=== PATIENT | male | born 1945 | race Caucasian/White ===

== ENCOUNTER 2018-01-10 00:13 | Outpatient (CLI) | payer MEDICARE, OTHER, SELFPAY ==
[2018-01-10 11:33] LABS: ALT 24 U/L (12-78); AST 27 U/L (15-37); Albumin 3.7 g/dL (3.4-5.0); Alkaline Phosphatase 55 U/L (46-116); BUN 23 mg/dL (7-18); Bilirubin, Total 0.5 mg/dL (0.2-1.0); Calcium 9.2 mg/dL (8.5-10.1); Chloride 105 mmol/L (98-107); Cholesterol 170 mg/dL (50-200); Estimated GFR 59.68 (mL/min/1.73m2); Glucose 90 mg/dL (70-100); HDL Cholesterol 41 mg/dL (40-60); LDL CHOLESTEROL 108 mg/dL (<100); Potassium 4.8 mmol/L (3.5-5.1); Sodium 142 mmol/L (136-145); Total Protein 6.9 g/dL (6.4-8.2); Triglyceride 104 mg/dL (30-150)
== END 2018-01-10 00:33 ==
PROVIDERS: PCP Nurse Practitioner Family; Visit Provider Physician Assistant Medical
DX: E78.5 Hyperlipidemia, unspecified (principal)
CPT/HCPCS: 36415; 80053; 80061; 83721

== ENCOUNTER 2019-02-17 18:59 | Outpatient (REF) | payer MEDICARE, OTHER, SELFPAY ==
[2019-02-17 20:25] LABS: Hemoglobin A1C 5.7 % (4.5-6.2)
[2019-02-17 20:31] LABS: ALT 33 U/L (16-63); AST 24 U/L (15-37); Albumin 4.1 g/dL (3.4-5.0); Alkaline Phosphatase 59 U/L (46-116); Anion Gap 9.6 mmol/L (3-11); BUN 24 mg/dL (7-18); Bilirubin, Total 0.4 mg/dL (0.2-1.0); CO2 26.4 mmol/L (21.0-32.0); CREATININE 1.13 mg/dL (0.70-1.30); Calcium 9.8 mg/dL (8.5-10.1); Calculated LDL 131 mg/dL; Chloride 106 mmol/L (98-107); Cholesterol 206 mg/dL (<200); Glucose 82 mg/dL (74-106); HDL Cholesterol 41 mg/dL (40-60); Potassium 4.8 mmol/L (3.5-5.1); Sodium 142 mmol/L (136-145); Total Protein 7.4 g/dL (6.4-8.2); Triglyceride 171 mg/dL (<150)
== END 2019-02-17 19:19 ==
LOC: NCHCN 18:59
PROVIDERS: PCP Nurse Practitioner Family; Visit Provider Physician Assistant Medical
DX: E78.5 Hyperlipidemia, unspecified (principal); I10 Essential (primary) hypertension
CPT/HCPCS: 80053; 80061; 83036

== ENCOUNTER 2019-07-21 14:12 | Outpatient (CLI) | payer MEDICARE, OTHER, SELFPAY ==
--- NOTE | 2019-07-21 09:15 | DI.RAD_ITS ---
EXAM: XR SHOULDER RT COMPLETE 2+V CLINICAL HISTORY: pain in right shoulder. TECHNIQUE: 2D digital imaging was performed. COMPARISON: No previous for comparison. FINDINGS: BONES: No acute fracture is present. No bony destructive lesion is seen. Mild hypertrophic changes ar e seen at the acromioclavicular joint. Periarticular spurring is seen at the glenoid. JOINTS: No dislocation present. SOFT TISSUE: Calcifications are seen in the soft tissues adjacent to the greater tuberosity suggestiv e of calcific tendinitis. IMPRESSION: Degenerative changes of the right shoulder. DATA REPOSITORY: RADIATION DOSE DELIVERED:
== END 2019-07-21 14:32 ==
PROVIDERS: PCP Physician Assistant Medical; Referring Provider Physician Assistant Medical; Visit Provider Physician Assistant
DX: M25.511 Pain in right shoulder (principal); M75.31 Calcific tendinitis of right shoulder; M19.011 Primary osteoarthritis, right shoulder; M75.101 Unspecified rotator cuff tear or rupture of right shoulder, not specified as traumatic; M75.51 Bursitis of right shoulder; M75.21 Bicipital tendinitis, right shoulder
CPT/HCPCS: 99204; 73030

== ENCOUNTER 2019-07-29 07:24 | Outpatient (CLI) | payer MEDICARE, SELFPAY ==
--- NOTE | 2019-07-29 07:45 | DI.MRI_ITS ---
EXAM: MR UPPER JOINT RT WO CLINICAL HISTORY: Rotator cuff tear, subacute,TENDONITIS,BURSITIS,M75.21,M75.51,M75.101. TECHNIQUE: Multiplanar multisequence MRI was performed. COMPARISON: CR XR SHOULDER RT COMPLETE 2+V from 07/21/2019 FINDINGS: There is mild spurring at the AC joint which may mildly impinge on the distal supraspinatus muscle. There is mild thickening of the distal supraspinatus tendon. The there is a focal area of high sig nal, consistent with a partial tear. There is no muscle atrophy. The infraspinatus, subscapularis a nd biceps tendons appear intact. There is a minimal of fluid in the subacromial subdeltoid bursa. N o glenohumeral joint effusion is seen. The labrum is grossly intact. The marrow signal is normal. IMPRESSION: Partial tear of the distal supraspinatus tendon. AC joint degenerative changes. DATA REPOSITORY:
== END 2019-07-29 07:44 ==
PROVIDERS: PCP Physician Assistant Medical; Visit Provider Student in an Organized Health Care Education/Training Program
DX: M25.511 Pain in right shoulder (principal); M75.101 Unspecified rotator cuff tear or rupture of right shoulder, not specified as traumatic; M19.011 Primary osteoarthritis, right shoulder
CPT/HCPCS: 73221

== ENCOUNTER → 2019-08-03 11:15 | Outpatient (BNVA) | payer MEDICARE, SELFPAY | PROVIDERS: PCP Physician Assistant Medical; Referring Provider Physician Assistant Medical; Visit Provider Student in an Organized Health Care Education/Training Program | DX: M75.21 Bicipital tendinitis, right shoulder (principal); M75.51 Bursitis of right shoulder; M75.101 Unspecified rotator cuff tear or rupture of right shoulder, not specified as traumatic | CPT/HCPCS: 99213 ==

== ENCOUNTER → 2019-10-08 08:03 | Outpatient (BNVA) | payer MEDICARE, SELFPAY | PROVIDERS: PCP Physician Assistant Medical; Referring Provider Physician Assistant Medical; Visit Provider Physical Therapy Assistant | DX: Z12.11 Encounter for screening for malignant neoplasm of colon (principal); I10 Essential (primary) hypertension ==

== ENCOUNTER 2019-10-25 07:15 | Day surgery (SDC) | payer MEDICARE, SELFPAY ==
--- NOTE | 2019-10-25 06:34 | W.COLOREPORT ---
Date of service: 10/25/19 Time of Service: : Colonoscopy Report Date of procedure: 10/25/19 Pre-op diagnosis general: Colon Cancer Screening Post-op diagnosis procedure note: other (polyps, diverticulosis) Procedure: Colonoscopy with polypectomy and biopsies Surgeon: Adrianna Huerta Anesthesia proc note operative: other (General/ASA 2/Herman Spaulding, HESHAM) Estimated blood loss (mL): 3 Pathology: other (ascending polyp, bx of ascending lipoma (?), sigmoid polyps x2, rectal polyp) Complications: None Disposition: same day Indications: The patient is here for Colonoscopy pre-op. His last screening was in 2008 and was unremarkable. He has no family history of colon cancer. He has not had any bowel habit changes. -Discussed colonoscopy bowel prep as well as the procedure. Discussed possible complications of the procedure to include bleeding, pain, perforation, missed small lesion/polyp, sore throat, aspiration and adverse reaction to the medications. Questions were answered to patient?s satisfaction. No guarantees were implied or given. Prep: Miralax/Dulcolax Procedure Start Time: : Procedure End Time: :58 Retraction Time: 24 minutes Findings: One sessile polyp in the proximal ascending colon. Soft mass in the proximal ascending colon with normal appearing mucosa. Biopsies done. 3 small polyps in the sigmoid and rectum Procedure Description: After informed consent was obtained the patient was taken to the procedure room and placed in a left decubitous position. Monitors were applied and a time out was done. The patients name, date of , procedure, allergies to medications and metal in their body was reviewed. The patient was then sedated. Once sedated and comfortable a rectal exam was done. External exam was normal. Internal exam revealed a normal sphincter tone and no palpable masses. The prostate felt smooth. The scope was then introduced and retro-flexed. No internal hemorrhoids, masses or polyps were identified on retro-flexion. The scope was then advanced to the cecum without difficulty. The ileocecal valve and appendiceal orifice were identified. The prep was good. The scope was then slowly retracted over 24 minutes back into the rectum. Polyps were removed with cold forceps in the ascending colon, sigmoid colon and rectum. Biopsies were done of a mass that grossly looked like a lipoma. There was moderate diverticulosis noted in the descending and sigmoid colon.The scope was removed and the patient was woken up and taken back to Same day surgery in stable condition. The patient tolerated the procedure well and there were no immediate complications. Follow up: The patient should follow up in 5 years unless they develop changes in bowel habits or other new gastrointestinal complaints.
--- NOTE | 2019-10-25 06:35 | W.PM.DSUDISC ---
Discharge Plan Disposition Patient Disposition: HOME Condition: Good Discharge Details Reason For Visit: Colonoscopy Attending Provider: Adrianna Huerta Primary Care Provider: Braden Mcdermott Home Meds and New Rx's Prescriptions: Continued lisinopril 40 mg tablet 40 mg PO DAILY RF: 0 simvastatin 10 mg tablet 10 mg PO DAILY RF: 0 amlodipine 5 mg tablet 5 mg PO DAILY RF: 0 latanoprost 0.005 % drops 1 drp OP DAILY RF: 0 aspirin [Adult Low Dose Aspirin] 81 mg tablet,delayed release (DR/EC) 81 mg PO DAILY RF: 0 Discontinued polyethylene glycol 3350 17 gram/dose powder 238 g PO ONCE Qty: 238 RF: 0 bisacodyl [Dulcolax (bisacodyl)] 5 mg tablet,delayed release (DR/EC) 5 mg PO ONCE Qty: 4 RF: 0 Discharge Instructions Instructions: Diverticulosis (DC), Colorectal Polyps (DC) Additional Instructions: Findings: 4 polyps Diverticulosis Follow up: 5 years Please call if you develop: fevers >101.5 Nausea or Vomiting Abdominal pain that is not transient DAY SURGERY UNIT POST ENDOSCOPY INSTRUCTIONS 1. Because there will be medication in your system for the next 24 hours, you may feel a little sleepy. Your coordination will be affected. Therefore: a. Do not drive or operate dangerous equipment for 24 hours. b. Do not drink alcohol beverages for 24 hours (not even beer). c. Plan to go home and rest for the day. 2. Generally there are no restrictions on your activity after a day or so has gone by, but you may feel a bit fatigued for a few days. 3 After you arrive home you may have a light meal and return to a normal diet as you can tolerate it without feeling sick to your stomach. 4. After surgery, you may feel pain or discomfort. This should be only transient, but if it persists please contact your doctor. 5. If there are any questions regarding the findings of your procedure, please feel free to contact your doctor. 6. If you are unable to contact your doctor with a problem, contact the hospital at [phone]. 7. Continue all your regular medications unless directed otherwise. I understand the above instructions and have no questions. Signature of Patient or Responsible Adult Escort Date/Time Name of Responsible Adult Escort Signature of Nurse Date/Time Activity:: Activity as Tolerated Diet:: High Fiber Discharge Orders Discharge Orders: Discharge Order (Routine); Ordered 10/25/19 Ordered By: Adrianna Huerta
[2019-10-25 07:29] VITALS: BP 143/87; PULSE 79; RESP 16; TEMP 36.2; O2SAT 98
[2019-10-25] MEDS: Lactated Ringers 1,000 ML 80 ML IV (07:46)
--- NOTE | 2019-10-25 08:36 | BOWEL_PTH ---
PATIENT: Yeison Gutierrez LOC: [facility] U#:[id number] AGE/SX: 74/M ROOM: RE10/25/[address]: Adrianna Huerta MD : [id number] BED: DIS: 10/25/2019 SPEC #: [id number] RECD: 10/25/19 12:38 STATUS: SHARI REQ #: [id number] GHASSAN: 10/25/19 08:[address]: Adrianna Huerta DEPT: Surgical Specimen RECD BY: Cookie Garber ENTERED: 10/25/19 12:41 SP TYPE: Bowel OTHR DR: Braden Mcdermott Tissues: 1 - BIOPSY BOWEL 2 - BIOPSY BOWEL 3 - BIOPSY BOWEL 4 - BIOPSY BOWEL Procedures: GROSS AND MICRO LEVEL 4 Comments: [id number]
[2019-10-25 09:35] VITALS: BP 148/84; PULSE 63; RESP 18; TEMP 36.2; O2SAT 100
== END 2019-10-25 10:10 | disposition home or self-care (01) ==
PROVIDERS: PCP Physician Assistant Medical; Visit Provider Surgery
PROC: 0DJD8ZZ Inspection of Lower Intestinal Tract, Via Natural or Artificial Opening Endoscopic (ICD-10-PCS; CPT 45378; principal; 2019-10-25 08:30)
DX: Z12.11 Encounter for screening for malignant neoplasm of colon (principal); D12.2 Benign neoplasm of ascending colon; K63.5 Polyp of colon; K62.1 Rectal polyp; D17.5 Benign lipomatous neoplasm of intra-abdominal organs; K57.30 Diverticulosis of large intestine without perforation or abscess without bleeding
CPT/HCPCS: 45380; 88305; J2001

== ENCOUNTER → 2019-12-01 10:58 | Outpatient (BNVA) | payer MEDICARE, SELFPAY | PROVIDERS: PCP Physician Assistant Medical; Referring Provider Physician Assistant Medical; Visit Provider Student in an Organized Health Care Education/Training Program | DX: M75.111 Incomplete rotator cuff tear or rupture of right shoulder, not specified as traumatic (principal); M75.21 Bicipital tendinitis, right shoulder; M75.51 Bursitis of right shoulder; I10 Essential (primary) hypertension | CPT/HCPCS: 99213 ==

== ENCOUNTER 2020-02-07 12:23 | Outpatient (REF) | payer MEDICARE, SELFPAY ==
[2020-02-07 20:11] LABS: ALT 23 U/L (16-63); AST 17 U/L (15-37); Alkaline Phosphatase 63 U/L (46-116); BUN 26 mg/dL (7-18); Bilirubin, Total 0.5 mg/dL (0.2-1.0); Calcium 9.4 mg/dL (8.5-10.1); Calculated LDL 111 mg/dL (<100); Chloride 104 mmol/L (98-107); Cholesterol 182 mg/dL (<200); Estimated GFR 54.11 (mL/min/1.73m2); Glucose 94 mg/dL (74-106); HDL Cholesterol 38 mg/dL (40-60); Potassium 4.7 mmol/L (3.5-5.1); Sodium 139 mmol/L (136-145); Total Protein 7.3 g/dL (6.4-8.2); Triglyceride 167 mg/dL (<150)
[2020-02-07 20:53] LABS: Hemoglobin A1C 5.6 % (<5.7)
[2020-02-08 18:00] LABS: PSA, Diagnostic 2.1 ng/mL (0.0-6.5)
== END 2020-02-07 12:43 ==
LOC: NCHCN 12:23
PROVIDERS: PCP Physician Assistant Medical; Visit Provider Physician Assistant Medical
DX: I10 Essential (primary) hypertension (principal); R73.03 Prediabetes; E78.5 Hyperlipidemia, unspecified; R32 Unspecified urinary incontinence
CPT/HCPCS: 80053; 80061; 83036; 84153

== ENCOUNTER 2020-09-08 13:27 | Outpatient (REF) | payer MEDICARE, SELFPAY ==
[2020-09-08 19:19] LABS: Anion Gap 11.6 mmol/L (3-11); BUN 28 mg/dL (7-18); CO2 23.4 mmol/L (21.0-32.0); CREATININE 1.2 mg/dL (0.70-1.30); Chloride 105 mmol/L (98-107); Estimated GFR 59.18 (mL/min/1.73m2); Glucose 112 mg/dL (74-106); Potassium 4.4 mmol/L (3.5-5.1); Sodium 140 mmol/L (136-145)
== END 2020-09-08 13:28 | disposition home or self-care (01) ==
LOC: NCHCN 13:27
PROVIDERS: PCP Physician Assistant Medical; Visit Provider Physician Assistant Medical
DX: I10 Essential (primary) hypertension (principal)
CPT/HCPCS: 80048

== ENCOUNTER 2021-03-07 10:51 | Outpatient (REF) | payer MEDICARE, SELFPAY ==
[2021-03-07 12:51] LABS: ALT 29 U/L (16-63); AST 18 U/L (15-37); Albumin 3.8 g/dL (3.4-5.0); Alkaline Phosphatase 75 U/L (46-116); Anion Gap 7.9 mmol/L (3-11); BUN 31 mg/dL (7-18); Bilirubin, Total 0.2 mg/dL (0.2-1.0); CO2 28.1 mmol/L (21.0-32.0); CREATININE 1.3 mg/dL (0.70-1.30); Calcium 9.2 mg/dL (8.5-10.1); Calculated LDL 132 mg/dL (<100); Chloride 106 mmol/L (98-107); Cholesterol 196 mg/dL (<200); Estimated GFR 53.96 (mL/min/1.73m2); Glucose 100 mg/dL (74-106); HDL Cholesterol 44 mg/dL (40-60); Potassium 4.8 mmol/L (3.5-5.1); Sodium 142 mmol/L (136-145); Total Protein 7.1 g/dL (6.4-8.2); Triglyceride 104 mg/dL (<150)
== END 2021-03-07 10:52 | disposition home or self-care (01) ==
LOC: NCHCN 10:51
PROVIDERS: PCP Physician Assistant Medical; Visit Provider Physician Assistant Medical
DX: E78.5 Hyperlipidemia, unspecified (principal)
CPT/HCPCS: 80053; 80061

== ENCOUNTER 2021-06-22 13:45 | Outpatient (REF) | payer MEDICARE, SELFPAY ==
[2021-06-22 19:30] LABS: ALT 23 U/L (16-63); AST 15 U/L (15-37); Alkaline Phosphatase 69 U/L (46-116); Anion Gap 7.6 mmol/L (3-11); BUN 32 mg/dL (7-18); Bilirubin, Total 0.4 mg/dL (0.2-1.0); CO2 25.4 mmol/L (21.0-32.0); CREATININE 1.2 mg/dL (0.70-1.30); Calcium 9.1 mg/dL (8.5-10.1); Calculated LDL 91 mg/dL (<100); Chloride 105 mmol/L (98-107); Cholesterol 159 mg/dL (<200); Estimated GFR 59.02 (mL/min/1.73m2); Glucose 90 mg/dL (74-106); HDL Cholesterol 35 mg/dL (40-60); Sodium 138 mmol/L (136-145); Total Protein 7.3 g/dL (6.4-8.2); Triglyceride 166 mg/dL (<150)
== END 2021-06-22 13:46 | disposition home or self-care (01) ==
LOC: NCHCN 13:45
PROVIDERS: PCP Physician Assistant Medical; Visit Provider Physician Assistant Medical
DX: E78.5 Hyperlipidemia, unspecified (principal); R73.03 Prediabetes
CPT/HCPCS: 80053; 80061; 83036

== ENCOUNTER 2021-08-10 09:41 | Day surgery (SDC) | payer MEDICARE, SELFPAY ==
[2021-08-10 10:27] VITALS: BP 132/70; PULSE 55; RESP 16; TEMP 36.6; O2SAT 100
[2021-08-10] MEDS: Tropicam./Phenyleph. (1/2.5%) 5 ML BTL OS ×3 (10:34→10:44)
--- NOTE | 2021-08-10 11:14 | ANES.PREOP_ITS ---
General Info Date of Service Date Performed: 08/10/21 Height: 5 ft 11 in Weight: 74.6 kg Body Mass Index (BMI): 22.9 Surgical Procedure: Operation Date: 08/10/21 12:40 Proposed Procedure Side Surgeon p Cataract Extraction with IOL Implant w/Glaucoma Stent Left Steve Gilmore MD Meds Allergies and Home Medications Allergies Allergy/AdvReac Type Severity Reaction Status Date / Time bee venom protein (honey bee) Allergy Severe Verified 08/08/21 13:06 Sulfa (Sulfonamide AdvReac Mild VOMIT/DIARR Verified 08/08/21 13:06 Antibiotics) HEA Home Medication Medication Instructions Recorded amlodipine 5 mg tablet 5 mg PO DAILY 07/21/19 lisinopril 40 mg tablet 40 mg PO DAILY 07/21/19 simvastatin 10 mg tablet 10 mg PO DAILY 07/21/19 aspirin 81 mg tablet,delayed 81 mg PO DAILY 10/05/19 release (Adult Low Dose Aspirin) latanoprost 0.005 % eye drops 1 drp ophthalmic (eye) HS 10/05/19 Current Visit Medications: Current Medications Generic Name Dose Route Start Last Admin Trade Name Freq PRN Reason Stop Dose Admin Acetaminophen 1,000 mg 08/10/21 06:00 Acetaminophen 500 Mg Tab PO Q4H PRN PRN Miscellaneous Medication 0 ml 08/10/21 06:00 Prednisolone 1%, Moxifloxacin 0.5%, Nepafenac 0.1% 5ml Btl OS DIRECTED [facility] Miscellaneous Medication 0 ml 08/10/21 06:00 08/10/21 10:44 Tropicam./Phenyleph. (1/2.5%) 5 Ml Btl OS 1 drp DIRECTED V[facility]ESA Administration Tetracaine HCl 0 ml 08/10/21 06:00 Tetracaine 0.5% 4 Ml Btl OS DIRECTED VANESA PFSH Active Problems Active Problems: Problem Status Onset Code Rotator cuff tear, right M75.101 Bursitis of right shoulder M75.51 Tendonitis of long head of biceps brachii of right shoulder M75.21 Tubular adenoma of colon D12.6 Hyperplastic colon polyp K63.5 Medical History Medical History Glaucoma HTN (hypertension) Hyperlipidemia Prediabetes Surgical History Surgical History (Updated 08/10/21 @ 10:25 by Dipesh Harrison) Colonoscopy planned History of back surgery lumbar spine region Hx of Achilles tendon repair Hx of tonsillectomy Tobacco Smoking/Tobacco Use Status: Current-Occasional Tobacco Type: cigars Alcohol Alcohol Intake: current Alcohol intake frequency: holidays/special occasions only Alcohol type: beer Substance Use Substance use: Never Substance use type: does not use Vital Signs and Lab Results Vital Signs Most Recent Vital Signs in EMR: Most Recent Vital Signs Temp Pulse Resp BP Pulse Ox 36.6 C 55 L 16 132/70 100 08/10/21 10:27 08/10/21 10:27 08/10/21 10:27 08/10/21 10:27 08/10/21 10:27 Lab Results Blood Type / Crossmatch: No Data to Display Complete Blood Count: No Data to Display Complete Metabolic Panel: No Data to Display Liver Function Panel: 2 No Data to Display Coagulation Panel: No Data to Display Cardiac Panel: No Data to Display Arterial Blood Gas: No Data to Display Venous Blood Gas: No Data to Display Pancreas Panel: No Data to Display Thyroid Panel: No Data to Display Infectious Disease: No Data to Display Blood Cultures: No Data to Display Toxicology Panel: No Data to Display Anesthesia Assessment and Plan Anesthesia History Personal History: No History of Anesthesia Complications Family History: No Family History of Anesthesia Complications Exercise Tolerance Exercise Tolerance: Metabolic Equivalents>4 Pertinent Negatives Pertinent Negatives: No Symptoms of GERD, No Major Cardiovascular Symptoms or Complaints and No Major Pulmonary Symptoms or Complaints Cardiac & Pulmonary Exam Cardiac Exam: Normal S1/S2 Heart Sounds Pulmonary Exam: Clear Bilateral Breath Sounds Implantable Cardiac Device Does patient have a Pacemaker or an ICD?: No Airway Exam Known Difficult Airway: No Mallampati Class: 1 Mouth Opening: Normal (> 3cm) Thyromental Distance: Greater than 3 cm Neck Range of Motion: Full ROM Neck Circumference: Normal Teeth Condition: Normal Dentition ASA Classification ASA Score: ASA 2 Emergency Case?: No NPO Status NPO Status: NPO Clears >2 hours, Solids >8 hours Anesthesia Plan Resuscitation Status: Full Code Anesthesia Technique: MAC Anesthesia Airway Planned: Natural Airway Monitors Used: Standard Monitors
[2021-08-10 12:03] VITALS: BMI 22.9
[2021-08-10] MEDS: Tetracaine 0.5% 4 ML BTL OS (12:33)
[2021-08-10] MEDS: Balanced Salt Soln.-PLUS 500 ML BAG (12:35)
[2021-08-10] MEDS: Duovisc Viscoelastic System EACH 1 EACH (12:36)
[2021-08-10] MEDS: Lidocaine 2% Jelly 6 ML SYR (12:37)
[2021-08-10] MEDS: Povidone-Iodine Ophth 30 ML BTL (12:38)
--- NOTE | 2021-08-10 13:00 | W.PM.DSUDISC ---
Discharge Plan Disposition Patient Disposition: HOME Condition: Good Discharge Details Attending Provider: Steve Gilmore Primary Care Provider: Braden Mcdermott Home Meds and New Rx's Prescriptions: No Action lisinopril 40 mg tablet 40 mg PO DAILY simvastatin 10 mg tablet 10 mg PO DAILY amlodipine 5 mg tablet 5 mg PO DAILY latanoprost 0.005 % drops 1 drp OP HS aspirin [Adult Low Dose Aspirin] 81 mg tablet,delayed release (DR/EC) 81 mg PO DAILY Discharge Instructions Stand Alone Forms: Post-op Topical Cataract, Yuri Verma (DSU) Discharge Orders Discharge Orders: Discharge Order (Routine); Ordered 08/10/21 Ordered By: Steve Gilmore DS: Diagnosis Discharge Diagnosis (1) Posterior subcapsular age-related cataract of left eye: Status: Resolved (2) Nuclear sclerotic cataract of left eye: Status: Resolved (3) Primary open angle glaucoma (POAG) of left eye, mild stage: Status: Chronic
--- NOTE | 2021-08-10 13:01 | W.PM.OP ---
Date of service: 08/10/21 Time of Service: 13:02 Operative Note Operative Note DATE OF PROCEDURE: 08/10/21 PRE-OP DIAGNOSIS: Nuclear/posterior subcapsular cataract, left eye. Primary open-angle glaucoma, left eye, mild stage PROCEDURE: 1. Cataract extraction using phacoemulsification with intraocular lens implant, left eye 2. Insertion of multiple anterior segment aqueous drainage devices (Glaukos iStent inject x 2) into trabecular meshwork, left eye SURGEON: Steve Gilmore ANESTHESIA TYPE: Local By Surgeon and MAC Refer to Anesthesia Record ESTIMATED BLOOD LOSS: 0 PATHOLOGY: none sent COMPLICATIONS: None Patient was transported to: same day Patient's condition: stable Implants: 1. [employer] / [employer] Tecnis ZCB00 intraocular lens 2. Glaukos iStent inject trabecular micro-bypass stent x 2 Indications: 1. Progressive decreased vision due to cataract, left eye 2. Primary open angle glaucoma, left eye Procedure Description: CATARACT SURGERY OPERATIVE REPORT PREOPERATIVE DIAGNOSIS: Nuclear/posterior subcapsular cataract, left eye Primary open-angle glaucoma, left eye, mild stage POSTOPERATIVE DIAGNOSIS: Same OPERATION: 1. Cataract extraction using phacoemulsification with posterior chamber intraocular lens implant, left eye. 2. Insertion of multiple anterior segment aqueous drainage devices (Glaukos iStent inject x 2) into trabecular meshwork, left eye IOL: IOL Pipe Smoking Machine Offbearer/Model: [employer] / KAYODE Tecnis ZCB00 IOL Power: + 20.5 diopters IOL Serial Number: [id number] Optic Diameter: 6.0mm Haptic/Overall Diameter: 13.0mm PHACO INFO: [employer] Vision System with OZil and Active Fluidics Cumulative Dispersed Energy (CDE): 6.64 seconds TRABECULAR MICRO-BYPASS STENT INFO: Glaukos iStent inject x 2 Reference Number: [id number] Serial Number: [id number] US 0008 SURGEON: Steve Gilmore MD, SHARRI ANESTHESIA: Monitored Anesthesia Care (MAC), with local sub-tenon's anesthetic infiltration COMPLICATIONS: None SPECIMENS: None INDICATIONS FOR PROCEDURE: The patient is a 76-year-old gentleman with history of progressive decreased vision in his left eye secondary to the development of nuclear and posterior subcapsular cataract. He is significantly symptomatic that he desires cataract surgery and attempt to improve and maximize his vision in addition, he has primary open-angle glaucoma, managed on one topical medication. The option of glaucoma stent implant at the time of cataract surgery was also offered to the patient and he wished to proceed. PROCEDURE: The correct surgical eye was identified and marked as the left eye and the pupil was dilated in the preoperative area using mydriatics and cycloplegics. The dilated pupil size was 7.0 mm. He elected to proceed without oral sedation. The patient was brought to the operating room where cardiopulmonary monitoring was instituted and surgical time-out was performed, confirming the correct operative eye and IOL power. Topical anesthesia was administered and ophthalmic povidone-iodine 5% was instilled into the conjunctival fornices. Lidocaine gel was applied to the cornea and the quentin-ocular area was prepped with Betadine 10% solution and draped in the usual sterile fashion for intraocular surgery, including an aperture drape. A Tegaderm transparent film dressing was cut in half and used to cover the lashes and lid margins. Care was taken to sequester the lashes and lid margins under the Tegaderm dressing. A lid speculum was placed between the lids of the operative eye and the [employer] Lux[employer] Revalia operating microscope was maneuvered into position. Bart scissors were then used to make a conjunctival buttonhole approximately 6mm posterior to the limbus in the inferonasal quadrant. Blunt dissection was carried out to expose bare sclera, and a blunt-tipped sub-tenon?s anesthesia cannula was introduced and passed posteriorly along the globe where non-preserved plain lidocaine was injected into posterior sub-Tenon?s space. A sideport knife was used to make a paracentesis port superior/superiortemporally. Intraocular phenylephrine/lidocaine was injected into the anterior chamber. The anterior chamber was then filled with viscoelastic. A 2.4mm keratome knife was used to create a half-thickness groove at the limbus and then to construct a three-plane near-clear corneal tunnel extending 2.0mm into clear cornea in the temporal position. . A flap was raised on the anterior capsule and capsulorhexis forceps were used to complete a continuous curvilinear capsulorhexis of 5.0 mm. Balanced salt solution was then used to perform cortical cleaving hydrodissection and nuclear hydrodelineation until the lens could be freely rotated within the capsular bag. The lens nucleus was then disassembled and removed within the capsular bag and iris plane using phacoemulsification. Residual cortical material was removed using the 45-degree angled silicone I/A tip with 0.3mm port. The posterior capsule was carefully polished to remove as much residual lens epithelial cells as safely possible. The capsular bag was then inflated and the anterior chamber deepened with viscoelastic. The lens implant described above was inserted into the capsular bag using the KAYODE Smith Injector. A Kuglen hook was used to dial the IOL into position. The anterior chamber was then slightly over-filled with viscoelastic. The microsope and the patient's head were tilted into the ideal position for viewing of the anterior chamber angle. Viscoelastic was placed on the cornea followed by a surgical gonionlens, and the anterior chamber angle landmarks were identified. The [employer] iStent inject handpiece was introduced into the anterior chamber and the insertion sleeve was retracted once the injector was distal to the pupillary margin. The trocar was advanced through the central portion of the trabecular meshwork and into the back wall of Schlemm's canal in the nasal quadrant, with care taken to ensure the micro-insertion tube was perpendicular to the trabecular meshwork. The trabecular meshwork was lightly dimpled and the stent was injected without difficulty. The same procedure was then performed in the inferiornasal quradrant, approximately 1 clock hour inferior to the first stent. This was the area where blood reflux was evident into Schlemm's canal. More superiorly, there did not appear to be patent debt collector channels. Both stents were then examined and noted to be in good position within the trabecular meshwork. Moderate amount of blood reflux was present through the apertures of both stents. The microscope and the patients head were returned to the normal coaxial position. Viscoelatic was then removed from the anterior chamber using the I/A handpiece. The lens implant was noted to center nicely within the capsular bag. The incisions were stromally hydrated, and the anterior chamber was reformed using BSS. Then 0.5cc of moxifloxacin 1.0mg/ml were injected into the capsular bag and anterior chamber. The incisions were checked with a Weck spear and found to be secure. Several drops of ophthalmic povidone-iodine 5% were then applied to the eye followed by two drops of Imprimis combination prednisolone/moxifloxacin/nepafenac solution. The drapes were removed and a clear plastic protective eye shield was placed over the eye. The patient was then returned to Same Day Surgery in stable condition.
[2021-08-10 13:08] VITALS: BP 151/77; PULSE 64; RESP 16; TEMP 36.4; O2SAT 98
--- NOTE | 2021-08-10 14:14 | W.ANESPOSTOP ---
Postoperative Evaluation Date, Time and Location Date Performed: 08/10/21 Time Performed: 14:14 Patient Location: Day Surgery Unit Vital Signs Most Recent Imported Vital Signs: Most Recent Vital Signs Temp Pulse Resp BP Pulse Ox 36.4 C L 64 16 151/77 H 98 08/10/21 13:08 08/10/21 13:08 08/10/21 13:08 08/10/21 13:08 08/10/21 13:08 Pain Score Most Recent Pain Score: Most Recent Pain Score Pain Level 0 08/10/21 13:08 Assessment Mental Status: Awake (Alert & Oriented to Patient Baseline) Airway and Respiratory Function: Patent airway with normal (patient baseline) respiratory exam Cardiovascular Function: Hemodynamically Stable Hydration Status: Adequately Hydrated Nausea & Vomiting: No Nausea or Vomiting Pain: Pt. Denies Any Pain Peripheral Nerve Block: Patient did not receive a nerve block
== END 2021-08-10 13:20 | disposition home or self-care (01) ==
PROVIDERS: PCP Physician Assistant Medical; Visit Provider Ophthalmology
PROC: (CPT 66991; principal; 2021-08-10 12:30)
DX: H25.042 Posterior subcapsular polar age-related cataract, left eye (principal); H40.1121 Primary open-angle glaucoma, left eye, mild stage; R73.03 Prediabetes; I10 Essential (primary) hypertension; E78.5 Hyperlipidemia, unspecified
CPT/HCPCS: 66991; V2632; C1783

== ENCOUNTER 2021-08-24 10:26 | Day surgery (SDC) | payer MEDICARE, SELFPAY ==
[2021-08-24] MEDS: Tropicam./Phenyleph. (1/2.5%) 5 ML BTL OD ×3 (11:35→11:53)
[2021-08-24 11:36] VITALS: BP 131/61; PULSE 56; RESP 16; TEMP 36.7; O2SAT 98
--- NOTE | 2021-08-24 12:03 | W.ANESPRE ---
General Info Date of Service Date Performed: 08/24/21 Height: 5 ft 11 in Weight: 74.6 kg Body Mass Index (BMI): 22.9 Surgical Procedure: Operation Date: 08/24/21 13:40 Proposed Procedure Side Surgeon p Cataract Extraction with IOL Implant w/Glaucoma Stent Right Steve Gilmore MD Meds Allergies and Home Medications Allergies Allergy/AdvReac Type Severity Reaction Status Date / Time bee venom protein (honey bee) Allergy Severe Verified 08/24/21 11:25 Sulfa (Sulfonamide AdvReac Mild VOMIT/DIARR Verified 08/24/21 11:25 Antibiotics) HEA Home Medication Medication Instructions Recorded amlodipine 5 mg tablet 5 mg PO DAILY 07/21/19 lisinopril 40 mg tablet 40 mg PO DAILY 07/21/19 simvastatin 10 mg tablet 10 mg PO DAILY 07/21/19 aspirin 81 mg tablet,delayed 81 mg PO DAILY 10/05/19 release (Adult Low Dose Aspirin) latanoprost 0.005 % eye drops 1 drp ophthalmic (eye) HS 10/05/19 Current Visit Medications: Current Medications Generic Name Dose Route Start Last Admin Trade Name Freq PRN Reason Stop Dose Admin Acetaminophen 1,000 mg 08/24/21 06:00 Acetaminophen 500 Mg Tab PO Q4H PRN PRN Miscellaneous Medication 0 ml 08/24/21 06:00 Prednisolone 1%, Moxifloxacin 0.5%, Nepafenac 0.1% 5ml Btl OD DIRECTED [facility] Miscellaneous Medication 0 ml 08/24/21 06:00 08/24/21 11:53 Tropicam./Phenyleph. (1/2.5%) 5 Ml Btl OD 1 drp DIRECTED [facility] Administration Tetracaine HCl 0 ml 08/24/21 06:00 Tetracaine 0.5% 4 Ml Btl OD DIRECTED [facility] PFSH Active Problems Active Problems: Problem Status Onset Code Primary open angle glaucoma (POAG) of left eye, mild stage H40.1121 Nuclear sclerotic cataract of left eye H25.12 Posterior subcapsular age-related cataract of left eye H25.042 Rotator cuff tear, right M75.101 Bursitis of right shoulder M75.51 Tendonitis of long head of biceps brachii of right shoulder M75.21 Tubular adenoma of colon D12.6 Hyperplastic colon polyp K63.5 Medical History Medical History Glaucoma HTN (hypertension) Hyperlipidemia Prediabetes Surgical History Surgical History Colonoscopy planned History of back surgery lumbar spine region Hx of Achilles tendon repair Hx of tonsillectomy Tobacco Smoking/Tobacco Use Status: Current-Occasional Tobacco Type: cigars Alcohol Alcohol Intake: current Alcohol intake frequency: holidays/special occasions only Alcohol type: beer Substance Use Substance use: Never Substance use type: does not use Vital Signs and Lab Results Vital Signs Most Recent Vital Signs in EMR: Most Recent Vital Signs Temp Pulse Resp BP Pulse Ox 36.7 C 56 L 16 131/61 98 08/24/21 11:36 08/24/21 11:36 08/24/21 11:36 08/24/21 11:36 08/24/21 11:36 Lab Results Blood Type / Crossmatch: No Data to Display Complete Blood Count: No Data to Display Complete Metabolic Panel: No Data to Display Liver Function Panel: No Data to Display Coagulation Panel: No Data to Display Cardiac Panel: No Data to Display Arterial Blood Gas: No Data to Display Venous Blood Gas: No Data to Display Pancreas Panel: No Data to Display Thyroid Panel: No Data to Display Infectious Disease: No Data to Display Blood Cultures: No Data to Display Toxicology Panel: No Data to Display Anesthesia Assessment and Plan Anesthesia History Personal History: No History of Anesthesia Complications Family History: No Family History of Anesthesia Complications Exercise Tolerance Exercise Tolerance: Metabolic Equivalents>4 Pertinent Negatives Pertinent Negatives: No Symptoms of GERD, No Major Cardiovascular Symptoms or Complaints and No Major Pulmonary Symptoms or Complaints Cardiac & Pulmonary Exam Cardiac Exam: Normal S1/S2 Heart Sounds Pulmonary Exam: Clear Bilateral Breath Sounds Implantable Cardiac Device Does patient have a Pacemaker or an ICD?: No Airway Exam Known Difficult Airway: No Mallampati Class: 1 Mouth Opening: Normal (> 3cm) Thyromental Distance: Greater than 3 cm Neck Range of Motion: Full ROM Neck Circumference: Normal Teeth Condition: Normal Dentition ASA Classification ASA Score: ASA 2 Emergency Case?: No NPO Status NPO Status: NPO Clears >2 hours, Solids >8 hours Anesthesia Plan Resuscitation Status: Full Code Anesthesia Technique: MAC Anesthesia Airway Planned: Natural Airway Monitors Used: Standard Monitors
[2021-08-24 12:44] VITALS: BMI 22.9
[2021-08-24] MEDS: Tetracaine 0.5% 4 ML BTL OD (12:52)
[2021-08-24] MEDS: Duovisc Viscoelastic System EACH 1 EACH (12:53)
[2021-08-24] MEDS: Balanced Salt Soln.-PLUS 500 ML BAG (12:53)
[2021-08-24] MEDS: Lidocaine 2% Jelly 6 ML SYR (12:54)
[2021-08-24] MEDS: Povidone-Iodine Ophth 30 ML BTL (12:55)
--- NOTE | 2021-08-24 13:23 | W.PM.DSUDISC ---
Discharge Plan Disposition Patient Disposition: HOME Condition: Good Discharge Details Attending Provider: Steve Gilmore Primary Care Provider: Braden Mcdermott Home Meds and New Rx's Prescriptions: No Action lisinopril 40 mg tablet 40 mg PO DAILY simvastatin 10 mg tablet 10 mg PO DAILY amlodipine 5 mg tablet 5 mg PO DAILY latanoprost 0.005 % drops 1 drp OP HS aspirin [Adult Low Dose Aspirin] 81 mg tablet,delayed release (DR/EC) 81 mg PO DAILY Discharge Instructions Stand Alone Forms: Post-op Topical Cataract, Yuri Verma ([facility]U) Discharge Orders Discharge Orders: Discharge Order (Routine); Ordered 08/24/21 Ordered By: Steve Gilmore DS: Diagnosis Discharge Diagnosis (1) Nuclear sclerotic cataract of right eye: Status: Resolved (2) Primary open angle glaucoma (POAG) of right eye, mild stage: Status: Chronic
[2021-08-24 13:24] VITALS: BP 146/85; PULSE 62; RESP 16; TEMP 36.2; O2SAT 98
--- NOTE | 2021-08-24 13:25 | W.PM.OP ---
Date of service: 08/24/21 Time of Service: 13:25 Operative Note Operative Note DATE OF PROCEDURE: 08/24/21 PRE-OP DIAGNOSIS: Nuclear cataract, right eye Primary open-angle glaucoma, right eye, mild stage POST-OP DIAGNOSIS: same PROCEDURE: 1. Cataract extraction using phacoemulsification with intraocular lens implant, right eye 2. Insertion of multiple anterior segment aqueous drainage devices (Glaukos iStent inject x 1) into trabecular meshwork, right eye SURGEON: Steve Gilmore ANESTHESIA TYPE: Local By Surgeon and MAC Refer to Anesthesia Record PATHOLOGY: none sent COMPLICATIONS: None Patient was transported to: same day Patient's condition: stable Implants: 1. [employer] / [employer] Tecnis ZCB00 intraocular lens 2. Glaukos iStent inject trabecular micro-bypass stent x 1 Indications: 1. Progressive decreased vision due to cataract, right eye 2. Primary open angle glaucoma, right eye Procedure Description: CATARACT SURGERY OPERATIVE REPORT PREOPERATIVE DIAGNOSIS: Nuclear cataract, right eye Primary open-angle glaucoma, right eye, mild stage POSTOPERATIVE DIAGNOSIS: Same OPERATION: 1. Cataract extraction using phacoemulsification with posterior chamber intraocular lens implant, right eye. 2. Insertion of multiple anterior segment aqueous drainage devices (Glaukos iStent inject x 1) into trabecular meshwork, right eye IOL: IOL Head Of Mathematics/Model: [employer] / KAYODE Tecnis ZCB00 IOL Power: + 20.5 diopters IOL Serial Number: [id number] Optic Diameter: 6.0mm Haptic/Overall Diameter: 13.0mm PHACO INFO: [employer] Vision System with OZil and Active [employer]uidics Cumulative Dispersed Energy (CDE): 11.86 seconds TRABECULAR MICRO-BYPASS STENT INFO: Glaukos iStent inject x 2 Reference Number: [id number] Serial Number: [id number] SURGEON: Steve Gilmore MD, SHARRI ANESTHESIA: Monitored Anesthesia Care (MAC), with local sub-tenon's anesthetic infiltration COMPLICATIONS: None SPECIMENS: None INDICATIONS FOR PROCEDURE: The patient is a 76-year-old gentleman with history of progressive decreased vision in both eyes secondary to the development of bilateral cataracts. He also has a history of primary open-angle glaucoma, mild stage in the right eye. His glaucoma is currently managed on one medication in both eyes. He has recently undergone cataract surgery in the left eye with implantation of glaucoma stents. He now presents for cataract surgery in the right eye with implantation of glaucoma stent as well. PROCEDURE: The correct surgical eye was identified and marked as the right eye and the pupil was dilated in the preoperative area using mydriatics and cycloplegics. The dilated pupil size was 6.5 mm. He elected to proceed without sedation. The patient was brought to the operating room where cardiopulmonary monitoring was instituted and surgical time-out was performed, confirming the correct operative eye and IOL power. Topical anesthesia was administered and ophthalmic povidone-iodine 5% was instilled into the conjunctival fornices. Lidocaine gel was applied to the cornea and the quentin-ocular area was prepped with Betadine 10% solution and draped in the usual sterile fashion for intraocular surgery, including an aperture drape. A Tegaderm transparent film dressing was cut in half and used to cover the lashes and lid margins. Care was taken to sequester the lashes and lid margins under the Tegaderm dressing. A lid speculum was placed between the lids of the operative eye and the [employer] operating microscope was maneuvered into position. Bart scissors were then used to make a conjunctival buttonhole approximately 6mm posterior to the limbus in the inferonasal quadrant. Blunt dissection was carried out to expose bare sclera, and a blunt-tipped sub-tenon?s anesthesia cannula was introduced and passed posteriorly along the globe where non-preserved plain lidocaine was injected into posterior sub-Tenon?s space. A sideport knife was used to make a paracentesis port inferiortemporally. Intraocular phenylephrine/lidocaine was injected into the anterior chamber. The anterior chamber was then filled with viscoelastic. A 2.4mm keratome knife was used to construct a 2-plane near-clear corneal tunnel extending 2.0mm into clear cornea superiortemporally. . A flap was raised on the anterior capsule and capsulorhexis forceps were used to complete a continuous curvilinear capsulorhexis of 5.0 mm. Balanced salt solution was then used to perform cortical cleaving hydrodissection and nuclear hydrodelineation until the lens could be freely rotated within the capsular bag. The lens nucleus was then disassembled and removed within the capsular bag and iris plane using phacoemulsification. Residual cortical material was removed using the 45-degree angled silicone I/A tip with 0.3mm port. The posterior capsule was carefully polished to remove as much residual lens epithelial cells as safely possible. The capsular bag was then inflated and the anterior chamber deepened with viscoelastic. The lens implant described above was inserted into the capsular bag using the KAYODE [place] [place] Injector. A Kuglen hook was used to dial the IOL into position. The anterior chamber was then slightly over-filled with viscoelastic. The microsope and the patient's head were tilted into the ideal position for viewing of the anterior chamber angle. Viscoelastic was placed on the cornea followed by a surgical gonionlens, and the anterior chamber angle landmarks were identified. The [employer] iStent inject handpiece was introduced into the anterior chamber and the insertion sleeve was retracted once the injector was distal to the pupillary margin. The trocar was advanced through the central portion of the trabecular meshwork and into the back wall of Schlemm's canal in the inferonasal quadrant, with care taken to ensure the micro-insertion tube was perpendicular to the trabecular meshwork. The trabecular meshwork was lightly dimpled and the stent was injected with some difficulty due to continuous eye movement.. The same procedure was then performed in the superiornasal quadrant, however the patient had significant continuous eye movement, and the stent failed to embed completely. With difficulty, it was rethreaded on the trocar and removed from the eye. Additional viscoelastic was injected into the chamber angle to clear the view, however there was too much eye movement to consider attempting implanting the stent.. For stent was examined and noted to be in good position. The microscope and the patients head were returned to the normal coaxial position. Viscoelatic was then removed from the anterior chamber using the I/A handpiece. The lens implant was noted to center nicely within the capsular bag. The incisions were stromally hydrated, and the anterior chamber was reformed using BSS. Then 0.4cc of moxifloxacin 1.5mg/ml were injected into the capsular bag and anterior chamber. The incisions were checked with a Weck spear and found to be secure. Several drops of ophthalmic povidone-iodine 5% were then applied to the eye followed by two drops of Imprimis combination prednisolone/moxifloxacin/nepafenac solution. The drapes were removed and a clear plastic protective eye shield was placed over the eye. The patient was then returned to [facility] Day Surgery in stable condition.
--- NOTE | 2021-08-24 15:12 | W.ANESPOSTOP ---
Postoperative Evaluation Date, Time and Location Date Performed: 08/24/21 Time Performed: 15:12 Patient Location: Day Surgery Unit Vital Signs Most Recent Imported Vital Signs: Most Recent Vital Signs Temp Pulse Resp BP Pulse Ox 36.2 C L 62 16 146/85 H 98 08/24/21 13:24 08/24/21 13:24 08/24/21 13:24 08/24/21 13:24 08/24/21 13:24 Pain Score Most Recent Pain Score: Most Recent Pain Score Pain Level 0 08/24/21 13:24 Assessment Mental Status: Awake (Alert & Oriented to Patient Baseline) Airway and Respiratory Function: Patent airway with normal (patient baseline) respiratory exam Cardiovascular Function: Hemodynamically Stable Hydration Status: Adequately Hydrated Nausea & Vomiting: No Nausea or Vomiting Pain: Pt. Denies Any Pain Peripheral Nerve Block: Patient did not receive a nerve block Postoperative Comments:: Patient was discharged earlier today. Local only and per DSU MUSTAPHA Guerrero was doing very well at time of discharge.
== END 2021-08-24 13:42 | disposition home or self-care (01) ==
PROVIDERS: PCP Physician Assistant Medical; Visit Provider Ophthalmology
PROC: (CPT 66991; principal; 2021-08-24 13:30)
DX: H25.11 Age-related nuclear cataract, right eye (principal); H40.1111 Primary open-angle glaucoma, right eye, mild stage; R73.03 Prediabetes
CPT/HCPCS: 66991; V2632; C1783

== ENCOUNTER 2022-09-18 19:43 | Outpatient (REF) | payer MEDICARE, SELFPAY ==
[2022-09-18 20:31] LABS: Hemoglobin A1C 5.7 % (<5.7)
[2022-09-18 20:33] LABS: ALT 20 U/L (16-63); AST 22 U/L (15-37); Albumin 3.8 g/dL (3.4-5.0); Alkaline Phosphatase 66 U/L (46-116); Anion Gap 9.6 mmol/L (3-11); BUN 22 mg/dL (7-18); Bilirubin, Total 0.3 mg/dL (0.2-1.0); CO2 24.4 mmol/L (21.0-32.0); CREATININE 1.3 mg/dL (0.70-1.30); Calcium 8.9 mg/dL (8.5-10.1); Chloride 107 mmol/L (98-107); Estimated GFR 56.93 (mL/min/1.73m2); Glucose 92 mg/dL (74-106); Potassium 4.5 mmol/L (3.5-5.1); Sodium 141 mmol/L (136-145); Total Protein 7.2 g/dL (6.4-8.2)
[2022-09-18 21:29] LABS: Calculated LDL 70 mg/dL (<100); Cholesterol 133 mg/dL (<200); HDL Cholesterol 42 mg/dL (40-60); Triglyceride 105 mg/dL (<150)
[2022-09-19 20:52] LABS: PSA, Screening 3.2 ng/mL (<=6.5)
== END 2022-09-18 19:44 | disposition home or self-care (01) ==
LOC: NCHCN 19:43
PROVIDERS: PCP Physician Assistant Medical; Visit Provider Physician Assistant Medical
DX: R73.03 Prediabetes (principal); E78.5 Hyperlipidemia, unspecified; Z00.00 Encounter for general adult medical examination without abnormal findings; I10 Essential (primary) hypertension
CPT/HCPCS: 80053; 80061; 84153; 83036

== ENCOUNTER 2023-10-29 17:56 | Outpatient (REF) | payer MEDICARE, SELFPAY ==
[2023-10-29 20:05] LABS: ALT 35 U/L (16-63); AST 41 U/L (15-37); Alkaline Phosphatase 69 U/L (46-116); Anion Gap 6.5 mmol/L (3-11); BUN 39 mg/dL (7-18); Bilirubin, Total 0.53 mg/dL (0.2-1.0); CO2 24.5 mmol/L (21.0-32.0); CREATININE 1.2 mg/dL (0.70-1.30); Calcium 8.9 mg/dL (8.5-10.1); Calculated LDL 96 mg/dL (<100); Chloride 103 mmol/L (98-107); Cholesterol 166 mg/dL (<200); Estimated GFR 62.29 (mL/min/1.73m2); Glucose 88 mg/dL (74-106); HDL Cholesterol 46 mg/dL (40-60); Potassium 4.5 mmol/L (3.5-5.1); Sodium 134 mmol/L (136-145); Total Protein 7.2 g/dL (6.4-8.2); Triglyceride 123 mg/dL (<150)
[2023-10-29 20:27] LABS: Hemoglobin A1C 5.7 % (<5.7)
[2023-10-31 09:18] LABS: PSA, Screening 2.4 ng/mL (<=6.5)
== END 2023-10-29 17:57 | disposition home or self-care (01) ==
LOC: NCHCN 17:56
PROVIDERS: PCP Physician Assistant Medical; Visit Provider Physician Assistant Medical
DX: E78.5 Hyperlipidemia, unspecified (principal); R73.03 Prediabetes; Z12.5 Encounter for screening for malignant neoplasm of prostate
CPT/HCPCS: 80053; 80061; 84153; 83036

== ENCOUNTER 2024-01-14 17:36 | Outpatient (REF) | payer MEDICARE, SELFPAY ==
[2024-01-14 20:21] LABS: ALT 26 U/L (16-63); AST 24 U/L (15-37); Albumin 3.9 g/dL (3.4-5.0); Alkaline Phosphatase 75 U/L (46-116); Anion Gap 9.4 mmol/L (3-11); BUN 23 mg/dL (7-18); Bilirubin, Total 0.35 mg/dL (0.2-1.0); CO2 25.6 mmol/L (21.0-32.0); CREATININE 1.2 mg/dL (0.70-1.30); Calcium 9.6 mg/dL (8.5-10.1); Chloride 109 mmol/L (98-107); Estimated GFR 62.29 (mL/min/1.73m2); Glucose 93 mg/dL (74-106); Potassium 5.1 mmol/L (3.5-5.1); Sodium 144 mmol/L (136-145); Total Protein 7.7 g/dL (6.4-8.2)
== END 2024-01-14 17:37 | disposition home or self-care (01) ==
LOC: NCHCN 17:36
PROVIDERS: PCP Physician Assistant Medical; Visit Provider Physician Assistant Medical
DX: R74.01 Elevation of levels of liver transaminase levels (principal)
CPT/HCPCS: 80053

== ENCOUNTER 2024-12-20 11:09 | Outpatient (REF) | payer MEDICARE, SELFPAY ==
[2024-12-20 15:55] LABS: HCT 33.6 % (40.0-50.0); HGB 12.5 g/dL (13.5-17.5); MCH 39.1 pg (27.0-33.0); MCHC 37.2 % (32.0-36.0); MCV 105 fL (80-95); MPV 10.1 fL (8.0-11.0); Platelet Count 252 10^3/uL (130-400); RBC 3.20 10^6/uL (4.36-5.78); RDW 15.0 % (11.8-14.1); RDW-SD 50.7 fL; WBC 6.21 10^3/uL (4.4-10.8)
[2024-12-20 16:12] LABS: Hemoglobin A1C 5.7 % (<5.7)
[2024-12-20 16:34] LABS: ALT 28 U/L (16-63); AST 24 U/L (15-37); Albumin 3.7 g/dL (3.4-5.0); Alkaline Phosphatase 69 U/L (46-116); Anion Gap 11.0 mmol/L (3-11); BUN 25 mg/dL (7-18); Bilirubin, Total 0.4 mg/dL (0.2-1.0); CO2 24.0 mmol/L (21.0-32.0); Calcium 9.2 mg/dL (8.5-10.1); Calculated LDL 80 mg/dL (<100); Chloride 106 mmol/L (98-107); Cholesterol 146 mg/dL (<200); Estimated GFR 61.90 (mL/min/1.73m2); Glucose 96 mg/dL (74-106); HDL Cholesterol 43 mg/dL (>or=40); Potassium 4.5 mmol/L (3.5-5.1); Sodium 141 mmol/L (136-145); Total Protein 7.0 g/dL (6.4-8.2); Triglyceride 115 mg/dL (<150)
[2024-12-21 13:51] LABS: Vitamin B12 251 pg/mL (193-986)
[2024-12-21 14:02] LABS: Iron 59 ug/dL (65-175); Total Iron Binding Capacity 321 ug/dL (250-450); Transferrin Sat 18 % (20-55)
[2024-12-21 14:18] LABS: Ferritin 68 ng/mL (26-388)
[2024-12-21 22:38] LABS: Folate 12.0 ng/mL (See Note)
== END 2024-12-20 11:10 | disposition home or self-care (01) ==
LOC: NCHCN 11:09
PROVIDERS: PCP Physician Assistant Medical; Visit Provider Physician Assistant Medical
DX: R74.01 Elevation of levels of liver transaminase levels (principal); R73.03 Prediabetes; E78.5 Hyperlipidemia, unspecified; D64.9 Anemia, unspecified
CPT/HCPCS: 80053; 80061; 85027; 82607; 82728; 82746; 83036; 83540; 83550

== ENCOUNTER 2025-02-11 14:37 | Outpatient (REF) | payer MEDICARE, SELFPAY ==
[2025-02-11 17:01] LABS: HCT 31.7 % (40.0-50.0); HGB 11.8 g/dL (13.5-17.5); MCH 39.1 pg (27.0-33.0); MCHC 37.2 % (32.0-36.0); MCV 105 fL (80-95); MPV 10.3 fL (8.0-11.0); Platelet Count 228 10^3/uL (130-400); RBC 3.02 10^6/uL (4.36-5.78); RDW 14.7 % (11.8-14.1); RDW-SD 52.3 fL; WBC 3.82 10^3/uL (4.4-10.8)
[2025-02-11 23:57] LABS: Iron 62 ug/dL (65-175); Total Iron Binding Capacity 357 ug/dL (250-425)
== END 2025-02-11 14:38 | disposition home or self-care (01) ==
LOC: NCHCN 14:37
PROVIDERS: PCP Physician Assistant Medical; Visit Provider Family Medicine
DX: D53.9 Nutritional anemia, unspecified (principal)
CPT/HCPCS: 85027; 83540; 83550; 85045